=== PATIENT | female | born 1960 | race Caucasian/White ===

== ENCOUNTER 2017-02-02 15:56 | Observation (INO) | payer OTHER ==
[~2017-02-02] VITALS: Ht 175.3 cm; Wt 106.8 kg
[2017-02-02] VITALS (7 sets, daily range): BP systolic 97–116; BP diastolic 58–65; PULSE 64–78; RESP 14–18; Ht 175.3 cm; Wt 106.8 kg
[~2017-02-02 15:56] MED LIST: ASPI81TA3 PO; ATOR10TA65 PO; METF500T4 PO; OMEP40CA6 PO; TRAM50TA2 PO
[2017-02-02] MEDS ORDERED: HEPARIN 5,000 UNIT/0.5 ML VIAL ONE (16:00)
--- NOTE | 2017-02-02 16:07 | ERD ---
ER Documentation Chief Complaint Chief Complaint chest pressure x 3 days; sent from clinic HPI The patient is a 57-year-old female, presenting to the ER because of substernal chest pain and pressure intermittently for the last 3 days. She was seen in the clinic today where she was sent to the ER for further evaluation. The patient was 8/, who was treated with aspirin 325 mg p.o., 2 nitroglycerin spray, morphine 4 mg IV and Zofran 4 mg IV with good response, the pain is down to 3/10.. She denies dyspnea, radiation, abdominal pain, vomiting, dysuria, diarrhea. She does not smoke Past medical history: Hypertension, dyslipidemia, diabetes mellitus ROS All systems reviewed and are negative except as per history of present illness. Medications Home Meds Reported Medications Simvastatin* (Zocor*) 20 Mg Tablet, 20 MG PO QHS, #30 TAB 02/02/17 Metformin Hcl* (Metformin Hcl*) 500 Mg Tablet, 500 MG PO WITH BREAKFAST, #30 TAB 10/29/15 Discontinued Reported Medications Atorvastatin (Atorvastatin) 10 Mg Tablet, 20 MG PO DAILY, #30 TAB 10/29/15 Tramadol HCl (Tramadol HCl) 50 Mg Tablet, 100 MG PO Q6 Y for PAIN, #120 TAB 10/29/15 Aspirin* (Aspirin* Chew) 81 Mg Tab.chew, 81 MG PO DAILY, TAB.CHEW 10/29/15 Omeprazole* (Omeprazole*) 40 Mg Capsule.dr, 40 MG PO DAILY, #30 CAP 10/29/15 Allergies Allergies: Coded Allergies: No Known Allergy (Unverified , 02/02/17) PMhx/Soc Medical and Surgical Hx: pt denies Surgical Hx History of Surgery: Yes (hysterectomy) Anesthesia Reaction: No Hx Neurological Disorder: No Hx Respiratory Disorders: No Hx Cardiac Disorders: Yes (cholesterol) Hx Psychiatric Problems: No Hx Miscellaneous Medical Probl: Yes (diabetes) Hx Alcohol Use: No Hx Substance Use: No Hx Tobacco Use: No Smoking Status: Unknown if ever smoked Physical Exam Vitals Vital Signs Date Time Temp Pulse Resp B/P Pulse Ox O2 Delivery O2 Flow Rate FiO2 02/02/17 16:12 79 113/72 02/02/17 16:11 Nasal Cannula 4 02/02/17 15:59 98.8 78 16 106/67 96 Physical Exam Const: [] Head: Atraumatic Eyes: Normal Conjunctiva ENT: Normal External Ears, Nose and Mouth. Neck: Full range of motion..~ No meningismus. Resp: Clear to auscultation bilaterally Cardio: Regular rate and rhythm, no murmurs Abd: Soft, non tender, non distended. Normal bowel sounds Skin: No petechiae or rashes Back: No midline or flank tenderness Ext: No cyanosis, or edema Neur: Awake and alert Psych: Normal Mood and Affect Result Diagram: 02/02/17 1600 02/02/17 1600 Results 24 hrs Laboratory Tests Test 02/02/17 16:00 White Blood Count 2.610^3/ul Red Blood Count 4.6010^6/ul Hemoglobin 13.5g/dl Hematocrit 40.6% Mean Corpuscular Volume 88.3fl Mean Corpuscular Hemoglobin 29.3pg Mean Corpuscular Hemoglobin Concent 33.3g/dl Red Cell Distribution Width 12.8% Platelet Count 84842^3/UL Mean Platelet Volume 11.0fl Neutrophils % % Segmented Neutrophils % (Manual) 32% Lymphocytes % % Lymphocytes % (Manual) 47% Reactive Lymphocytes % (Manual) 7% Monocytes % % Monocytes % (Manual) 13% Eosinophils % % Eosinophils % (Manual) 2% Basophils % % Nucleated Red Blood Cells % 0.0/100WBC Neutrophils # 10^3/ul Absolute Lymphocytes (Manual) 1.210^3/ul Lymphocytes # 10^3/ul Reactive Lymphocytes # 0.110^3/ul Monocytes # 10^3/ul Absolute Monocytes (Manual) 0.310^3/ul Eosinophils # 10^3/ul Basophils # 10^3/ul Nucleated Red Blood Cells # 10^3/ul Giant Platelets 3% Platelet Morphology Comment @See below Poikilocytosis 1+ Sodium Level 140mmol/L Potassium Level 4.3mmol/L Chloride Level 103mmol/L Carbon Dioxide Level 24mmol/L Anion Gap 17 Blood Urea Nitrogen 10mg/dl Creatinine 0.96mg/dl Glucose Level 203mg/dl Calcium Level 9.3mg/dl Troponin I < 0.012ng/ml Current Medications Medications (Trade) Dose Ordered Sig/Essence Route PRN Reason Start Time Stop Time Status Last Admin Dose Admin Heparin Sodium (Porcine) (Heparin (5000 Units/0.5 ml)) 5,000 unit ONCE ONCE IV 02/02/17 16:10 02/02/17 16:11 Cancel Procedures/MDM Labs are pending when patient went to [facility] [place] [address] Radiology Main Line: [phone] DIAGNOSTIC IMAGING REPORT Patient: TRAMAINE CHAVEZ : 1960 Age: 57 Sex: F MR #: [id number] DOS: 02/02/17 1607 Ordering MD: DOROTHY GONSALEZ MD Location: E/R Room/Bed: PROCEDURE: Portable chest x-ray. CLINICAL INDICATION: 57-year of age, female. Chest pain TECHNIQUE: Portable AP view of the chest. COMPARISON: None available. FINDINGS: Medical devices: None. Tortuous aorta. Moderate diffuse enlargement of cardiopericardial silhouette. Bilateral hilar prominence is likely vascular. Decreased lung volumes with vascular crowding. Pulmonary vessels are prominent and indistinct likely due to interstitial pulmonary edema. Mild left greater than right lung base opacities likely represent atelectasis. There may be a trace left pleural effusion. Negative for a pneumothorax. No acute bony abnormality. Additional comment: None. IMPRESSION: 1. Cardiomegaly and suspected interstitial pulmonary edema. Evaluation is somewhat limited due to low lung volumes. 2. Mild left greater than right lung base opacities may represent atelectasis although aspiration or pneumonia could appear similar. RPTAT: HCTS Physician Frantz Date Time Electronically viewed and signed by Lizette Bonner Physician on 02/02/2017 16: 32 CS/ CC: DOROTHY GONSALEZ MD EKG: by EMS Read by emergency physician Rate/Rhythm: Normal Sinus Rhythm 65beats/min QRS, ST, T-waves: acute inf ST elevation with reciprocal changes, no PVC Impression: Acute Inf EKG EKG: in ER at 4 pm Read by emergency physician Rate/Rhythm: Normal Sinus Rhythm 80 beats/min QRS, ST, T-waves: No ST elevation, no T inversion Impression: Normal EKG MEDICAL MAKING DECISION: The patient is a 57-year-old female, presenting to the ER for acute STEMI EKG by EMS, however has a normal EKG in the ER. She was treated with heparin 5000 units IV for acute STEMI Consultation: I discussed the patient with the on-call assistant technician Dr. Garcia at 3:55 pm, who was made aware of the EKG changes and would like to take the patient to the [facility] for emergent cardiac angiogram The differential diagnoses considered include but are not limited to acute coronary syndrome, acute myocardial infarction, pericarditis, pulmonary embolism , aortic dissection, pneumonia, pleural effusion, pneumothorax, GERD, chest wall pain. Critical Care: Time: 35 minutes excluding all billable procedures. Treatments/Evaluations: Close monitoring and treatment of unstable vital signs, cardiorespiratory, and neurologic status, while maintaining tight balance of fluid, respiratory, and cardiac interventions. Departure Diagnosis: Primary Impression: ST elevation myocardial infarction (STEMI) Condition: Critical Comments I discussed the findings with the patient. I discussed the patient with the hospitalist Dr. Clark at 4:20 PM who was made aware of the lab, the treatment, the patient condition. The patient is admitted to ICU after cath Disclaimer: Inadvertent spelling and grammatical errors are likely due to EHR/ dictation software use and do not reflect on the overall quality of patient care. Also, please note that the electronic time recorded on this note does not necessarily reflect the actual time of the patient encounter. DOROTHY GONSALEZ MD Feb 02, 2017 16:07
[2017-02-02] MEDS ORDERED: HEPARIN 5,000 UNIT/0.5 ML VIAL IV ONE (16:10)
[2017-02-02] MEDS ORDERED: SIMV20TA PO (16:10)
[2017-02-02 16:15] LABS: ABNORMAL IP MESSAGE 1; HEMATOCRIT 40.6 % (37.0-47.0); HEMOGLOBIN 13.5 g/dl (12.0-16.0); MEAN CORPUSCULAR HEMOGLOBIN 29.3 pg (29.0-33.0); MEAN CORPUSCULAR HGB CONC 33.3 g/dl (32.0-37.0); MEAN CORPUSCULAR VOLUME 88.3 fl (82.0-101.0); PLATELET COUNT 197 10^3/UL (140-415); RED CELL DISTRIBUTION WIDTH 12.8 % (11.5-14.5); WHITE BLOOD COUNT 2.6 10^3/ul (4.8-10.8)
[2017-02-02 16:16] LABS: POSITIVE DIFF @See below
[2017-02-02] MEDS ORDERED: LIDOCAINE 1% (MDV) 20 ML INJ ONE (16:26)
[2017-02-02] MEDS ORDERED: NITROGLYCERIN (IC) 100 MCG/ML INJ ONE (16:26)
[2017-02-02] MEDS ORDERED: VERAPAMIL 5 MG INJ ONE (16:26)
[2017-02-02] MEDS ORDERED: MIDAZOLAM 1 MG/ML 2 ML INJ ONE ×2 (16:28→17:00)
[2017-02-02] MEDS ORDERED: FENTAnyl 50 MCG/ML VIAL ONE (16:28)
[2017-02-02] MEDS ORDERED: HEPARIN 1000 UNITS/ML 10 ML INJ IV ONE (16:30)
--- NOTE | 2017-02-02 16:32 | RADRPT ---
PROCEDURE: Portable chest x-ray. CLINICAL INDICATION: 57-year of age, female. Chest pain TECHNIQUE: Portable AP view of the chest. COMPARISON: None available. FINDINGS: Medical devices: None. Tortuous aorta. Moderate diffuse enlargement of cardiopericardial silhouette. Bilateral hilar promin ence is likely vascular. Decreased lung volumes with vascular crowding. Pulmonary vessels are prominent and indistinct likely due to interstitial pulmonary edema. Mild left greater than right lung base opacities likely repres ent atelectasis. There may be a trace left pleural effusion. Negative for a pneumothorax. No acute bony abnormality. Additional comment: None. IMPRESSION: 1. Cardiomegaly and suspected interstitial pulmonary edema. Evaluation is somewhat limited due to lo w lung volumes. 2. Mild left greater than right lung base opacities may represent atelectasis although aspiration or pneumonia could appear similar. RPTAT: HCTS Physician Frantz Date Time Electronically viewed and signed by Physician Frantz on 02/02/2017 16:32 /
[2017-02-02 16:36] LABS: ANION GAP 17 (8-16); BLOOD UREA NITROGEN 10 mg/dl (7-20); CALCIUM 9.3 mg/dl (8.4-10.2); CARBON DIOXIDE 24 mmol/L (21-31); CHLORIDE 103 mmol/L (97-110); CREATININE 0.96 mg/dl (0.44-1.00); GLUCOSE 203 mg/dl (70-220); POTASSIUM 4.3 mmol/L (3.5-5.1); SODIUM 140 mmol/L (135-144)
[2017-02-02 16:50] LABS: TROPONIN-I < 0.012 ng/ml (0.00-0.12)
[2017-02-02 16:59] LABS: EOSINOPHILS % (M) 2 % (0-7); GIANT THROMBO% (M) 3 % (0-0); MONOCYTES % (M) 13 % (0-11); POIKILOCYTOSIS 1+ (0-0); REACTIVE LYMPHOCYTES% (M) 7 % (0-0)
--- NOTE | 2017-02-02 17:29 | CONS ---
Date/Time of Note Date/Time of Note DATE: 02/02/17 TIME: 17:19 Assessment/Plan Assessment/Plan Chief Complaint/Hosp Course 57 yo with multiple coronary risk factors presents with chest pain and ST elevations inferior leads, resolved upon arrival in ER. Cath shows normal coronaries. This is consistent with coronary vasospasm. Problems: Additional Assessment/Plan Imp: ST elevations due to vasospasm HTN hypercholesterolemia diabetes Recc: Will add amlodipine to regimen Change her home statin from simvastatin to atorvastatin Echo Repeat troponin Home tomorrow if stable overnight. Consultation Date/Type/Reason Admit Date/Time 02/02/2017 Date of Consultation: Feb 02, 2017 Type of Consultation: cardiology Reason for Consultation STEMI Referring Provider: DOROTHY GONSALEZ MD Hx of Present Illness 57 yo with htn, hyperlipidemia, diabetes, presents with 3 d intermittent cp. Pt was in the ER at [facility] 3 d ago, sent home with inhalers. Pt presented to PCP Dr. Tiburcio Tate, was in extremis and he called paramedics. Seed Cleaner Operator EKG demonstrated NSR with ST elevations in inferior leads with reciprocal changes. Upon arrival, pt had no chest pain and repeat EKG was normal. Constitutional: improved, no complaints Eyes: no complaints ENT: no complaints Respiratory: no complaints Cardiovascular: chest pain (has resolved at present), no complaints Gastrointestinal: no complaints Genitourinary: no complaints Musculoskeletal: no complaints Skin: no complaints Neurologic: no complaints Psychological: nl mood/affect, no complaints Past Medical History Medical History: diabetes, high cholesterol, hypertension Past Surgical History Past Surgical Hx: other (hysterectomy) Family History Significant Family History: no pertinent family hx Social History Alcohol Use: none Smoking Status: Unknown if ever smoked Exam/Review of Systems Vital Signs Vitals Vital Signs Date Time Temp Pulse Resp B/P Pulse Ox O2 Delivery O2 Flow Rate FiO2 02/02/17 16:12 79 113/72 02/02/17 16:11 Nasal Cannula 4 02/02/17 15:59 98.8 16 96 Exam Constitutional: alert, oriented, well developed Psych: nl mood/affect, no complaints Head: atraumatic, normocephalic Eyes: EOMI, PERRL, nl conjunctiva, nl lids, nl sclera ENMT: nl external ears & nose, nl lips & teeth, nl nasal mucosa & septum Neck: supple, No bruits, No jvd Respiratory: clear to auscultation, normal air movement Cardiovascular: nl pulses, regular rate and rhythm, No murmurs/extra sounds Gastrointestinal: nl liver, spleen, non-tender, soft Musculoskeletal: nl extremities to inspection Extremities: normal pulses Neurological: nl mental status, nl speech Skin: nl turgor, No rash or lesions Results Result Diagram: 02/02/17 1600 02/02/17 1600 Results 24 hrs Laboratory Tests Test 02/02/17 16:00 White Blood Count 2.6 #L Red Blood Count 4.60 # Hemoglobin 13.5 # Hematocrit 40.6 # Mean Corpuscular Volume 88.3 Mean Corpuscular Hemoglobin 29.3 Mean Corpuscular Hemoglobin Concent 33.3 Red Cell Distribution Width 12.8 Platelet Count 197 Mean Platelet Volume 11.0 #H Neutrophils % Segmented Neutrophils % (Manual) 32 L Lymphocytes % Lymphocytes % (Manual) 47 Reactive Lymphocytes % (Manual) 7 H Monocytes % Monocytes % (Manual) 13 H Eosinophils % Eosinophils % (Manual) 2 Basophils % Nucleated Red Blood Cells % 0.0 Neutrophils # Absolute Lymphocytes (Manual) 1.2 Lymphocytes # Reactive Lymphocytes # 0.1 H Monocytes # Absolute Monocytes (Manual) 0.3 Eosinophils # Basophils # Nucleated Red Blood Cells # Giant Platelets 3 H Platelet Morphology Comment @See below Poikilocytosis 1+ Sodium Level 140 Potassium Level 4.3 Chloride Level 103 Carbon Dioxide Level 24 Anion Gap 17 H Blood Urea Nitrogen 10 Creatinine 0.96 Glucose Level 203 Calcium Level 9.3 Troponin I < 0.012 Procedures Procedures cath shows normal coronaries ekg as described above in hpi DARWIN WALLACE Feb 02, 2017 17:29
[2017-02-02] MEDS ORDERED: ACETAMINOPHEN 325 MG TAB PO PRN ×2 (17:30→18:00)
[2017-02-02] MEDS ORDERED: NACL 0.9% 3 ML SYG IV SCH (17:30)
[2017-02-02] MEDS ORDERED: MAGNESIUM HYDROXIDE 30ML CUP PO PRN (17:30)
[2017-02-02] MEDS ORDERED: DOCUSATE SODIUM 100 MG CAP PO PRN (17:30)
[2017-02-02] MEDS ORDERED: HYDROCODONE/APAP (5/325) TAB PO PRN (17:30)
--- NOTE | 2017-02-02 17:33 | OPPN ---
Date/Time of Note Date/Time of Note DATE: 02/02/17 TIME: 17:29 Operative Report Preoperative Diagnosis STEMI Postoperative Diagnosis coronary vasospasm Operation/Procedure Performed coronary angiography, left ventriculography Surgeon see signature line physicians assistant Roya RT Anesthesia: moderate sedation Estimated blood loss: 10 - 50 ml's Transfusion Required none Specimen none Grafts/Implants none Complications none DARWIN WALLACE Feb 02, 2017 17:33
[2017-02-02] MEDS ORDERED: SOD CHLORIDE 0.9% 1,000 ML IV SCH (17:35)
--- NOTE | 2017-02-02 17:51 | OPR ---
Date/Time of Note Date/Time of Note DATE: 02/02/17 TIME: 17:47 Operative Report Procedure Date: Feb 02, 2017 Preoperative Diagnosis STEMI inferior wall Postoperative Diagnosis Likely coronary spasm Operation/Procedure Performed coronary angiogram, left ventriculography Surgeon see signature line Hard Metals Engraver Hand Roya CASTILLO Anesthesia Type: moderate sedation Estimated Blood Loss: 10 - 50 ml's Transfusion none Specimen none Grafts/Implants none Complications none Pt Condition Post Procedure: stable Disposition: PACU Indications Chest pain and ST elevations of inferior leads, normalized by time patient reached ER. Procedure Description Patient brought emergently to cardiac labor contractor. Allens test done, and wrist prepped and draped. Lidocaine used for anesthesia locally. Using modified Seldinger technique, accessed the right radial artery. Moran catheter advanced to the asc thoracic aorta and engaged the RCA and LM, images done with injection of contrast. Catheter removed over wire, replaced with a pigtail which crossed the ao valve, pressures measured, LV gram done, and then pullback gradient done. At the end, the sheath was removed and replaced with a TR band. Findings discussed with pt with formal Faroese deaf interpreter. Case d/w her PCP Dr. Tate , and d/w son and . She left the procedure room in stable condition. Findings: LM - normal LCX - small, normal, two small OM's LAD - proximal mildly aneurysmal segment, one large tortuous diagonal vessel, no significant disease RCA - dominant, minimal luminal irregularities LV - ef 70%, LVEDP 7 DARWIN WALLACE Feb 02, 2017 17:51
[2017-02-02] MEDS ORDERED: AMLODIPINE 5 MG TAB PO SCH (18:00)
[2017-02-02] MEDS ORDERED: morphine 2 MG INJ IV PRN (18:00)
--- NOTE | 2017-02-02 18:12 | HP ---
Date/Time of Note Date/Time of Note DATE: 02/02/17 TIME: 17:53 Assessment/Plan VTE Prophylaxis VTE Prophylaxis Intervention: SCD's Lines/Catheters IV Catheter Type (from Nrsg): Peripheral IV Assessment/Plan Assessment/Plan 57 yo F with pmhx obesity, HL, DM presented with chest pain, EKG concerning for STEMI but cath with clean coronaries. Chest pain most likely 2/2 vasospasm #CV: ccb as per cards check a1c and lipids #LE cramps: ?muscle cramps? ?RLS? clinical scenario not suggestive of claudication given palpable pulses and no relation to activity check lytes outpatient EMG and ABIs #DM2: SSI, hold metformin cardiac diet HPI/ROS Admit Date/Time Admit Date/Time 02/02/2017 Hx of Present Illness CC chest pain HPI 57 yo F with pmhx obesity, HL, DM presented with 3 days of chest pain. EKG in the field concerning for chest pain concerning for STEMI. Pt taken emergently to cardiac cath lab radiology technologist, however cath showed clean coronaries. At this time pt feels ok, mostly just overwhelmed. She does note she's been getting cramps in her calves for the past few months. Happens when she is laying flat, is not associated with activity. PMHx: DM2, HL Soc Hx: lives in the community meds: metformin, simva ROS Eyes: no complaints ENT: no complaints Respiratory: no complaints Cardiovascular: chest pain (has resolved at present), no complaints Gastrointestinal: no complaints Genitourinary: no complaints Musculoskeletal: no complaints Skin: no complaints Neurologic: no complaints Psychological: nl mood/affect, no complaints PMH/Family/Social Past Medical History Medical History: diabetes, high cholesterol, hypertension Past Surgical History Past Surgical Hx: other (hysterectomy) Social History Alcohol Use: none Smoking Status: Unknown if ever smoked Exam/Review of Systems Vital Signs Vitals Vital Signs Date Time Temp Pulse Resp B/P Pulse Ox O2 Delivery O2 Flow Rate FiO2 02/02/17 16:12 79 113/72 02/02/17 16:11 Nasal Cannula 4 02/02/17 15:59 98.8 16 96 Exam Exam EOMI responds to questions appropriately in [place] no mrg lungs clear abd soft no rashes 5/5 strength bl LEs, palpable DPs, sensorium intact no edema Labs Result Diagram: 02/02/17 1600 02/02/17 1600 SEVERINO WHIPPLE MD Feb 02, 2017 18:12
[2017-02-02] MEDS ORDERED: GLUCAGON 1 MG INJ IM PRN (18:30)
[2017-02-02] MEDS ORDERED: GLUCOSE GEL 15 GRAM TUBE PO PRN ×2 (18:30)
[2017-02-02] MEDS ORDERED: GLUCOSE GEL 15 GRAM TUBE BUCCAL PRN (18:30)
[2017-02-02] MEDS ORDERED: DEXTROSE 50% 50 ML SYRINGE IV PRN ×2 (18:30)
[2017-02-02] MEDS: INSULIN ASPART [NOVOLOG] 3 ML PEN SC SCH ×2 (18:51→21:40)
[2017-02-02] MEDS ORDERED: ATORVASTATIN 80 MG TAB PO SCH (21:00)
[2017-02-02 23:15] LABS: CK-MB 0.57 ng/ml (0.0-2.4); TROPONIN-I 0.012 ng/ml (0.00-0.12)
[2017-02-03] VITALS (10 sets, daily range): BP systolic 97–130; BP diastolic 56–81; PULSE 55–68; RESP 16–20
[2017-02-03] MEDS ORDERED: ACCU-CHEK XX SCH (02:00)
[2017-02-03] MEDS: INSULIN ASPART [NOVOLOG] 3 ML PEN SC SCH ×3 (07:41→17:36)
[2017-02-03 08:01] LABS: ABNORMAL IP MESSAGE 1; HEMATOCRIT 35.1 % (37.0-47.0); HEMOGLOBIN 11.9 g/dl (12.0-16.0); MEAN CORPUSCULAR HEMOGLOBIN 29.8 pg (29.0-33.0); MEAN CORPUSCULAR HGB CONC 33.9 g/dl (32.0-37.0); MEAN CORPUSCULAR VOLUME 87.8 fl (82.0-101.0); PLATELET COUNT 162 10^3/UL (140-415); WHITE BLOOD COUNT 2.1 10^3/ul (4.8-10.8)
[2017-02-03 08:03] LABS: POSITIVE DIFF @See below
--- NOTE | 2017-02-03 08:29 | PN ---
Date/Time of Note Date/Time of Note DATE: 02/03/17 TIME: 08:26 Assessment/Plan VTE Prophylaxis VTE Prophylaxis Intervention: ambulation Lines/Catheters IV [facility] Saline Lock Assessment/Plan Chief Complaint/Hosp Course 57 yo with multiple coronary risk factors presents with chest pain and ST elevations inferior leads, resolved upon arrival in ER. Cath shows normal coronaries. This is consistent with coronary vasospasm. Problems: Assessment/Plan Coronary vasospasm / prinzmetal angina hypertension dyslipidemia diabetes Recc: Home today on atorvastatin instead of simvastatin, and amlodipine 2.5 mg for vasospasm ASA daily Follow up in my office one week. Subjective 24 Hr Interval Summary Free Text/Dictation Overnight no patient related events, amlodipine not given due to perceived low blood pressure (sbp 109). No further chest pain. Pt c/o sensitivity at IV site and wrist. Psychological: nl mood/affect Exam/Review of Systems Vital Signs Vitals Vital Signs Date Time Temp Pulse Resp B/P Pulse Ox O2 Delivery O2 Flow Rate FiO2 02/03/17 07:19 98.2 60 18 101/63 97 02/02/17 18:32 Nasal Cannula 2.0 Intake and Output 02/02/17 02/02/17 02/03/17 14:59 22:59 06:59 Intake Total 740 ml 120 ml Balance 740 ml 120 ml Exam Constitutional: alert, oriented, well developed Psych: nl mood/affect, no complaints Head: atraumatic, normocephalic Eyes: EOMI, PERRL, nl conjunctiva, nl lids, nl sclera ENMT: nl external ears & nose, nl lips & teeth, nl nasal mucosa & septum Neck: supple, No bruits, No jvd Respiratory: clear to auscultation, normal air movement Cardiovascular: regular rate and rhythm, No murmurs/extra sounds Gastrointestinal: non-tender, soft Musculoskeletal: nl extremities to inspection Extremities: other (right wrist site from cath intact, no hematoma, good pulse , good bellhop strength), No edema Neurological: nl mental status, nl speech Skin: nl turgor, No rash or lesions Results Result Diagram: 02/03/17 0736 02/02/17 1600 Results 24 hrs Laboratory Tests Test 02/02/17 16:00 02/02/17 17:52 02/02/17 21:37 02/02/17 22:28 White Blood Count 2.6 #L Red Blood Count 4.60 # Hemoglobin 13.5 # Hematocrit 40.6 # Mean Corpuscular Volume 88.3 Mean Corpuscular Hemoglobin 29.3 Mean Corpuscular Hemoglobin Concent 33.3 Red Cell Distribution Width 12.8 Platelet Count 197 Mean Platelet Volume 11.0 #H Neutrophils % Segmented Neutrophils % (Manual) 32 L Lymphocytes % Lymphocytes % (Manual) 47 Reactive Lymphocytes % (Manual) 7 H Monocytes % Monocytes % (Manual) 13 H Eosinophils % Eosinophils % (Manual) 2 Basophils % Nucleated Red Blood Cells % 0.0 Neutrophils # Absolute Lymphocytes (Manual) 1.2 Lymphocytes # Reactive Lymphocytes # 0.1 H Monocytes # Absolute Monocytes (Manual) 0.3 Eosinophils # Basophils # Nucleated Red Blood Cells # Giant Platelets 3 H Platelet Morphology Comment @See below Poikilocytosis 1+ Sodium Level 140 Potassium Level 4.3 Chloride Level 103 Carbon Dioxide Level 24 Anion Gap 17 H Blood Urea Nitrogen 10 Creatinine 0.96 Glucose Level 203 Calcium Level 9.3 Troponin I < 0.012 0.012 Bedside Glucose 193 202 Creatine Kinase 129 Creatine Kinase Index 0.4 Creatinine Kinase MB (Mass) 0.57 Test 02/03/17 01:59 02/03/17 07:35 02/03/17 07:36 Bedside Glucose 95 112 White Blood Count 2.1 L Red Blood Count 4.00 L Hemoglobin 11.9 L Hematocrit 35.1 L Mean Corpuscular Volume 87.8 Mean Corpuscular Hemoglobin 29.8 Mean Corpuscular Hemoglobin Concent 33.9 Red Cell Distribution Width 13.0 Platelet Count 162 Mean Platelet Volume 11.0 H Neutrophils % Lymphocytes % Monocytes % Eosinophils % Basophils % Nucleated Red Blood Cells % 0.0 Neutrophils # Lymphocytes # Monocytes # Eosinophils # Basophils # Nucleated Red Blood Cells # Medications Medications Current Medications Acetaminophen (Tylenol Tab) 650 mg Q6H PRN PO PAIN LEVEL 1-3 OR FEVER; Start 02/02/17 at 17:30 Acetaminophen/ Hydrocodone Bitart ([place] (5/325)) 1 tab Q6H PRN PO PAIN LEVEL 4 -6; Start 02/02/17 at 17:30 Docusate Sodium (Colace) 100 mg Q12H PRN PO CONSTIPATION; Start 02/02/17 at 17 :30 Magnesium Hydroxide (Milk Of Mag) 30 ml DAILY PRN PO CONSTIPATION; Start 02/02 at 17:30 Enoxaparin Sodium (Lovenox) 40 mg DAILY SC Last administered on 02/03/17 08: 12; Admin Dose 40 MG; Start 02/03/17 at 09:00 Diagnostic Test (Pha) (Accu-Chek) 1 ea 02 XX Last administered on 02/03/17 02 :18; Admin Dose 1 EA; Start 02/03/17 at 02:00 Morphine Sulfate (morphine) 2 mg Q2H PRN IV FOR NON CARDIAC PAIN (4-10) Last administered on 02/02/17 18:29; Admin Dose 2 MG; Start 02/02/17 at 18:00 Atorvastatin Calcium (Lipitor) 80 mg QHS PO Last administered on 02/02/17 21: 36; Admin Dose 80 MG; Start 02/02/17 at 21:00 Aspirin (Aspirin) 81 mg DAILY PO Last administered on 02/03/17 08:11; Admin Dose 81 MG; Start 02/03/17 at 09:00 Miscellaneous Information 1 ea NOTE XX ; Start 02/02/17 at 18:30 Glucose (Glutose) 15 gm Q15M PRN PO DECREASED GLUCOSE; Start 02/02/17 at 18:30 Glucose (Glutose) 22.5 gm Q15M PRN PO DECREASED GLUCOSE; Start 02/02/17 at 18: 30 Dextrose (D50w Syringe) 25 ml Q15M PRN IV DECREASED GLUCOSE; Start 02/02/17 at 18:30 Dextrose (D50w Syringe) 50 ml Q15M PRN IV DECREASED GLUCOSE; Start 02/02/17 at 18:30 Glucagon (Glucagen) 1 mg Q15M PRN IM DECREASED GLUCOSE; Start 02/02/17 at 18: 30 Glucose (Glutose) 15 gm Q15M PRN BUCCAL DECREASED GLUCOSE; Start 02/02/17 at 18:30 Amlodipine Besylate (Norvasc) 2.5 mg DAILY PO Last administered on 02/03/17 08:12; Admin Dose 2.5 MG; Start 02/03/17 at 09:00 DARWIN WALLACE Feb 03, 2017 08:29
[2017-02-03 08:34] LABS: IRON 44 ug/dl (35-150)
[2017-02-03 08:36] LABS: ALBUMIN 3.2 g/dl (3.3-4.9); ALBUMIN/GLOBULIN RATIO 0.94; BILIRUBIN,INDIRECT 0.3 mg/dl (0-1.1); BILIRUBIN,TOTAL 0.3 mg/dl (0.2-1.3); CALCIUM 8.8 mg/dl (8.4-10.2); CHOL/HDL RATIO 4.6 RATIO; CREATININE 0.76 mg/dl (0.44-1.00); POTASSIUM 4.2 mmol/L (3.5-5.1); TOTAL PROTEIN 6.6 g/dl (6.1-8.1)
[2017-02-03 08:39] LABS: CK-MB 0.53 ng/ml (0.0-2.4); TROPONIN-I 0.023 ng/ml (0.00-0.12)
[2017-02-03 08:43] LABS: TOTAL IRON BINDING CAPACITY 266 ug/dl (241-421)
[2017-02-03] MEDS ORDERED: ASPIRIN 81 MG TAB PO SCH ×2 (09:00)
[2017-02-03] MEDS ORDERED: ENOXAPARIN 40 MG/0.4 ML SYG SC SCH (09:00)
[2017-02-03] MEDS ORDERED: AMLODIPINE 2.5 MG TAB PO SCH (09:00)
[2017-02-03 09:17] LABS: BASOPHILS % (M) 4 % (0-2); EOSINOPHILS % (M) 2 % (0-7); GIANT THROMBO% (M) 4 % (0-0); MONOCYTES % (M) 5 % (0-11); PLATELET ESTIMATE NORMAL; REACTIVE LYMPHOCYTES% (M) 7 % (0-0)
[2017-02-03] MEDS ORDERED: AMLO2.5T78 PO (17:07)
[2017-02-03] MEDS ORDERED: ATOR80TA75 PO (17:07)
[2017-02-03] MEDS ORDERED: ASPI-535 PO (17:07)
[2017-02-03] MEDS ORDERED: GUAI120011 PO (17:07)
--- NOTE | 2017-02-03 17:10 | DS ---
Date/Time of Note Date/Time of Note DATE: 02/03/17 TIME: 17:09 Discharge Summary Admission/Discharge Info Admit Date/Time Feb 02, 2017 at 20:53 Discharge Date/Time Discharge Diagnosis chest pain 2/2 coronary vasospasm, leukopenia, bronchitis Patient Condition: Stable Consults cardiology Procedures [facility] 12 Findings: LM - normal LCX - small, normal, two small OM's LAD - proximal mildly aneurysmal segment, one large tortuous diagonal vessel, no significant disease RCA - dominant, minimal luminal irregularities LV - ef 70%, LVEDP 7 12.12 CXR IMPRESSION: 1. Cardiomegaly and suspected interstitial pulmonary edema. Evaluation is somewhat limited due to low lung volumes. 2. Mild left greater than right lung base opacities may represent atelectasis although aspiration or pneumonia could appear similar. a1c 6.8 CBC & CRP Test 02/02/17 16:00 02/03/17 07:36 White Blood Count 2.610^3/ul (4.8-10.8) #L 2.110^3/ul (4.8-10.8) L Red Blood Count 4.6010^6/ul (4.20-5.40) # 4.0010^6/ul (4.20-5.40) L Hemoglobin 13.5g/dl (12.0-16.0) # 11.9g/dl (12.0-16.0) L Hematocrit 40.6% (37.0-47.0) # 35.1% (37.0-47.0) L Mean Corpuscular Volume 88.3fl (82.0-101.0) 87.8fl (82.0-101.0) Mean Corpuscular Hemoglobin 29.3pg (29.0-33.0) 29.8pg (29.0-33.0) Mean Corpuscular Hemoglobin Concent 33.3g/dl (32.0-37.0) 33.9g/dl (32.0-37.0) Red Cell Distribution Width 12.8% (11.5-14.5) 13.0% (11.5-14.5) Platelet Count 53165^3/UL (140-415) 55885^3/UL (140-415) Mean Platelet Volume 11.0fl (7.4-10.4) #H 11.0fl (7.4-10.4) H Neutrophils % % (39.0-77.0) % (39.0-77.0) Segmented Neutrophils % (Manual) 32% (39-77) L 11% (39-77) L Lymphocytes % % (15.0-51.0) % (15.0-51.0) Lymphocytes % (Manual) 47% (15-51) 71% (15-51) H Reactive Lymphocytes % (Manual) 7% (0-0) H 7% (0-0) H Monocytes % % (0.0-11.0) % (0.0-11.0) Monocytes % (Manual) 13% (0-11) H 5% (0-11) Eosinophils % % (0.0-7.0) % (0.0-7.0) Eosinophils % (Manual) 2% (0-7) 2% (0-7) Basophils % % (0.0-2.0) % (0.0-2.0) Nucleated Red Blood Cells % 0.0/100WBC (0.0-0.0) 0.0/100WBC (0.0-0.0) Neutrophils # 10^3/ul (1.6-7.5) 10^3/ul (1.6-7.5) Absolute Lymphocytes (Manual) 1.210^3/ul (0.8-2.9) 1.410^3/ul (0.8-2.9) Lymphocytes # 10^3/ul (0.8-2.9) 10^3/ul (0.8-2.9) Reactive Lymphocytes # 0.110^3/ul (0.0-0.0) H 0.110^3/ul (0.0-0.0) H Monocytes # 10^3/ul (0.3-0.9) 10^3/ul (0.3-0.9) Absolute Monocytes (Manual) 0.310^3/ul (0.3-0.9) 0.110^3/ul (0.3-0.9) L Eosinophils # 10^3/ul (0.0-0.5) 10^3/ul (0.0-0.5) Basophils # 10^3/ul (0.0-0.1) 10^3/ul (0.0-0.1) Nucleated Red Blood Cells # 10^3/ul (0.0-0.0) 10^3/ul (0.0-0.0) Giant Platelets 3% (0-0) H 4% (0-0) H Platelet Morphology Comment @See below Poikilocytosis 1+ (0-0) Basophils % (Manual) 4% (0-2) H Basophils # (Manual) 0.010^3/ul (0.0-0.0) Platelet Estimate NORMAL Hx of Present Illness CC chest pain HPI 57 yo F with pmhx obesity, HL, DM presented with 3 days of chest pain. EKG in the field concerning for chest pain concerning for STEMI. Pt taken emergently to boat lab[facility], however cath showed clean coronaries. At this time pt feels ok, mostly just overwhelmed. She does note she's been getting cramps in her calves for the past few months. Happens when she is laying flat, is not associated with activity. PMHx: DM2, HL Soc Hx: lives in the community meds: metformin, simva Hospital Course 57 yo with multiple coronary risk factors presents with chest pain and ST elevations inferior leads, resolved upon arrival in ER. Cath shows normal coronaries, per cardiology consistent with coronary vasospasm. Pt started on low dose amlodipine and spasm resolved. Labs with incidental finding of leukopenia without thrombocytopenia or significant anemia. No critical neutropenia. Last CBCs here from 2016 with nl WBCs. Pt c/o of several days of coughing. Had actually presented to [place] 2 days ago and was diagnosed with bronchitis. Suspect leukopenia 2/2 viral process which is also the cause of pt's bronchitis. Though CXR here had ? infiltrate, no leukocytosis or fever to suggest bacterial PNA. Close follow up with PCP is advised for repeat CBC and further evaluation including possible dye house vat worker referral. Labs showed promince of reactive lymphocytes which would also be consistent with viral process Leukopenia discussed with PCP's office prior to discharge. Importance of follow up discussed with patient and her son and at length prior to discharge who voiced understanding Copy of dc summary faxed to PCP's office and given to patient prior to discharge. Changes from admit meds amlodipine started simva changed to atorva as simva would have precluded amlodipine use asa started for CAD risk reduction short course of mucinex for cough Home Meds Active Scripts Guaifenesin (Mucinex) 1,200 Mg Tab.er.12h, 1200 MG PO BID for 7 Days, #14 TAB Prov:SEVERINO WHIPPLE MD 02/03/17 Aspirin Ec (Aspir 81) 81 Mg Tablet., 81 MG PO DAILY for 30 Days, #30 TAB Prov:SEVERINO WHIPPLE MD 02/03/17 Atorvastatin* (Atorvastatin*) 80 Mg Tablet, 80 MG PO QHS for 30 Days, #30 TAB Prov:SEVERINO WHIPPLE MD 02/03/17 Amlodipine Besylate* (Amlodipine Besylate*) 2.5 Mg Tablet, 2.5 MG PO DAILY for 30 Days, #30 TAB Prov:SEVERINO WHIPPLE MD 02/03/17 Reported Medications Simvastatin* (Zocor*) 20 Mg Tablet, 20 MG PO QHS, #30 TAB 02/02/17 Metformin Hcl* (Metformin Hcl*) 500 Mg Tablet, 500 MG PO WITH BREAKFAST, #30 TAB 10/29/15 Discontinued Reported Medications Atorvastatin (Atorvastatin) 10 Mg Tablet, 20 MG PO DAILY, #30 TAB 10/29/15 Tramadol HCl (Tramadol HCl) 50 Mg Tablet, 100 MG PO Q6 Y for PAIN, #120 TAB 10/29/15 Aspirin* (Aspirin* Chew) 81 Mg Tab.chew, 81 MG PO DAILY, TAB.CHEW 10/29/15 Omeprazole* (Omeprazole*) 40 Mg Capsule., 40 MG PO DAILY, #30 CAP 10/29/15 Follow-up Plan Cardiology within 1 week PCP within 7 days to discuss leukopenia Primary Care Provider Tiburcio Tate Time spent on discharge: > 30 minutes Pending Labs Laboratory Tests Test 02/02/17 17:52 02/02/17 21:37 02/02/17 22:28 02/03/17 01:59 Bedside Glucose 193mg/dL (70-220) 202mg/dL (70-220) 95mg/dL (70-220) Creatine Kinase 129IU/L (23-200) Creatine Kinase Index 0.4 Creatinine Kinase MB (Mass) 0.57ng/ml (0.0-2.4) Troponin I 0.012ng/ml (0.00-0.12) Test 02/03/17 07:35 02/03/17 07:36 02/03/17 11:22 Bedside Glucose 112mg/dL (70-220) 155mg/dL (70-220) White Blood Count 2.110^3/ul (4.8-10.8) Red Blood Count 4.0010^6/ul (4.20-5.40) Hemoglobin 11.9g/dl (12.0-16.0) Hematocrit 35.1% (37.0-47.0) Mean Corpuscular Volume 87.8fl (82.0-101.0) Mean Corpuscular Hemoglobin 29.8pg (29.0-33.0) Mean Corpuscular Hemoglobin Concent 33.9g/dl (32.0-37.0) Red Cell Distribution Width 13.0% (11.5-14.5) Platelet Count 31185^3/UL (140-415) Mean Platelet Volume 11.0fl (7.4-10.4) Neutrophils % % (39.0-77.0) Segmented Neutrophils % (Manual) 11% (39-77) Lymphocytes % % (15.0-51.0) Lymphocytes % (Manual) 71% (15-51) Reactive Lymphocytes % (Manual) 7% (0-0) Monocytes % % (0.0-11.0) Monocytes % (Manual) 5% (0-11) Eosinophils % % (0.0-7.0) Eosinophils % (Manual) 2% (0-7) Basophils % % (0.0-2.0) Basophils % (Manual) 4% (0-2) Nucleated Red Blood Cells % 0.0/100WBC (0.0-0.0) Neutrophils # 10^3/ul (1.6-7.5) Absolute Lymphocytes (Manual) 1.410^3/ul (0.8-2.9) Lymphocytes # 10^3/ul (0.8-2.9) Reactive Lymphocytes # 0.110^3/ul (0.0-0.0) Monocytes # 10^3/ul (0.3-0.9) Absolute Monocytes (Manual) 0.110^3/ul (0.3-0.9) Eosinophils # 10^3/ul (0.0-0.5) Basophils # 10^3/ul (0.0-0.1) Basophils # (Manual) 0.010^3/ul (0.0-0.0) Nucleated Red Blood Cells # 10^3/ul (0.0-0.0) Platelet Estimate NORMAL Giant Platelets 4% (0-0) Sodium Level 139mmol/L (135-144) Potassium Level 4.2mmol/L (3.5-5.1) Chloride Level 104mmol/L (97-110) Carbon Dioxide Level 25mmol/L (21-31) Anion Gap 14 (8-16) Blood Urea Nitrogen 14mg/dl (7-20) Creatinine 0.76mg/dl (0.44-1.00) Glucose Level 116mg/dl (70-220) Hemoglobin A1c 6.8% (0-5.9) Calcium Level 8.8mg/dl (8.4-10.2) Iron Level 44ug/dl (35-150) Total Iron Binding Capacity 266ug/dl (241-421) Percent Iron Saturation 17% SAT (22-52) Ferritin 75.2ng/ml (11.1-264.0) Total Bilirubin 0.3mg/dl (0.2-1.3) Direct Bilirubin 0.00mg/dl (0.00-0.20) Indirect Bilirubin 0.3mg/dl (0-1.1) Aspartate Amino Transf (AST/SGOT) 30IU/L (15-46) Alanine Aminotransferase (ALT/SGPT) 41IU/L (13-69) Alkaline Phosphatase 83IU/L (42-121) Creatine Kinase 103IU/L (23-200) Creatine Kinase Index 0.5 Creatinine Kinase MB (Mass) 0.53ng/ml (0.0-2.4) Troponin I 0.023ng/ml (0.00-0.12) Total Protein 6.6g/dl (6.1-8.1) Albumin 3.2g/dl (3.3-4.9) Globulin 3.40g/dl (1.3-3.2) Albumin/Globulin Ratio 0.94 Triglycerides Level 127mg/dl (0-149) Cholesterol Level 138mg/dl (100-200) LDL Cholesterol, Calculated 83mg/dl HDL Cholesterol 30mg/dl (37-92) Cholesterol/HDL Ratio 4.6RATIO Copies To: CC: DARWIN WALLACE ELLEN MD Feb 03, 2017 17:10
--- NOTE | 2017-02-03 17:22 | PDOCDIS ---
Discharge Instructions DIAGNOSIS Discharge Diagnosis chest pain 2/2 coronary vasospasm, leukopenia, bronchitis CONDITION Patient Condition: Stable HOME CARE INSTRUCTIONS: Special Diet: Regular FOLLOW UP/APPOINTMENTS Follow-up Plan Follow up with Dr Garcia with transportation engineer within 1 week Office Address formerly [facility] Brynn Brown [address] [address] Office Follow up with your regular doctor within 7 days to discus your low white blood cell count and see if further testing is needed If you experience worsening chest pain or shortness of breath, call 911/go to the nearest ER immediately SEVERINO WHIPPLE MD Feb 03, 2017 17:22
--- NOTE | 2017-02-03 19:26 | RADRPT ---
Vent Rate: 61 bpm RR Interval: 0 msec [place] Interval: 166 msec QRS Duration: 84 msec QT Interval: 440 msec QTC Interval: 442 msec P-R-T [place]: 60 - 32 - 42 degrees Normal sinus rhythm Low voltage QRS Borderline ECG Electronically Signed By: Andre Clark [id number]
== END 2017-02-03 18:00 | disposition home or self-care (01) ==
LOC: E/R 15:56 → CCL 16:17 → UNDOADMOB 20:53 → MS4 20:53 → REC 20:53 → CCL 20:53 → UNDODISOB 02-03 18:00
PROVIDERS: ADMIT Internal Medicine; ATTEND Internal Medicine Interventional Cardiology
DX: I20.1 Angina pectoris with documented spasm (principal); D72.819 Decreased white blood cell count, unspecified; J40 Bronchitis, not specified as acute or chronic; E78.00 Pure hypercholesterolemia, unspecified; I10 Essential (primary) hypertension; E11.9 Type 2 diabetes mellitus without complications; E78.5 Hyperlipidemia, unspecified; E66.9 Obesity, unspecified; Z68.34 Body mass index [BMI] 34.0-34.9, adult; Z79.82 Long term (current) use of aspirin; Z79.84 Long term (current) use of oral hypoglycemic drugs
CPT/HCPCS: 71010; 80048; 80053; 80061; 82550; 82553; 82728; 82962; 83036; 83540; 84484; 85025; 93005; 96372; 96374; J1644; J1650; J1815; J2250; J2270; J3010; Z7500; Z7502; Z7610; 93458; G0378; C1887

== ENCOUNTER 2018-07-14 05:43 | Day surgery (SDC) | payer OTHER ==
[2018-07-14] VITALS (9 sets, daily range): BP systolic 112–141; BP diastolic 64–77; PULSE 64–78; RESP 14–18; Ht 172.7 cm; Wt 107.9 kg
[~2018-07-14] VITALS: Ht 172.7 cm; Wt 107.9 kg
[~2018-07-14 05:43] MED LIST changes: +AMLO2.5T78 PO; +ASPI-535 PO; -ASPI81TA3 PO; +ATOR-2 PO; -ATOR10TA65 PO; +GUAI120011 PO; +METF500T24 PO; -METF500T4 PO; -OMEP40CA6 PO; -TRAM50TA2 PO
[2018-07-14] MEDS ORDERED: CHOL200056 ORAL (07:17)
[2018-07-14] MEDS ORDERED: LOVA20TA ORAL (07:17)
[2018-07-14] MEDS ORDERED: ASPI-817 ORAL (07:17)
[2018-07-14] MEDS ORDERED: AMLO-145 ORAL (07:17)
[2018-07-14] MEDS ORDERED: METF-849 ORAL (07:17)
[2018-07-14] MEDS ORDERED: PANT40TA4 ORAL (07:17)
[2018-07-14] MEDS ORDERED: RIVA10TA PO (07:23)
--- NOTE | 2018-07-14 07:25 | PREAC ---
Date/Time of Note Date/Time of Note DATE: 07/14/18 TIME: 07:24 Anesthesia Eval and Record Evaluation Time Pre-Procedure Interview DATE: 07/14/18 TIME: 07:24 Age 58 Sex female NPO: 8 hrs Preoperative diagnosis R ankle pain Planned procedure R ankle arthrodesis Past Medical History Past Medical History: Includes Cardio: HTN, Dyslipidemia Endo: Diabetes Musculoskeletal: Osteoarthritis GI: Morbid obesity Surgery & Anesthesia Issues No known issue Meds Anticoagulation: No Beta Neri within 24 hr: No Reason Beta Neri not given: Pt. not on B-Neri Reported Medications Rivaroxaban* (Xarelto*) 10 Mg Tablet, 10 MG PO DAILY, TAB 07/14/18 Metformin* (Glucophage*) 500 Mg Tab, 1 TAB ORAL BID 07/14/18 Aspirin* (Aspirin* EC) 81 Mg Tablet., 1 TAB ORAL DAILY 07/14/18 Cholecalciferol (Vitamin D3) (Vitamin D-3) 2,000 Unit Tablet, 1 TAB ORAL DAILY 07/14/18 Pantoprazole* (Pantoprazole*) 40 Mg Tablet., 1 TAB ORAL DAILY 07/14/18 Lovastatin* (Lovastatin*) 20 Mg Tablet, 1 TAB ORAL DAILY 07/14/18 Amlodipine Besylate* (Amlodipine Besylate*) 5 Mg Tablet, 1 TAB ORAL DAILY 07/14/18 Discontinued Reported Medications Metformin Hcl* (Metformin Hcl*) 500 Mg Tablet, 500 MG PO WITH BREAKFAST, #30 TAB 10/29/15 Discontinued Scripts Guaifenesin (Mucinex) 1,200 Mg Tab.er.12h, 1200 MG PO BID for 7 Days, #14 TAB Prov:SEVERINO WHIPPLE MD 02/03/17 Aspirin Ec (Aspir 81) 81 Mg Tablet.dr, 81 MG PO DAILY for 30 Days, #30 TAB Prov:SEVERINO WHIPPLE MD 02/03/17 Atorvastatin* (Atorvastatin*) 80 Mg Tablet, 80 MG PO QHS for 30 Days, #30 TAB Prov:SEVERINO WHIPPLE MD 02/03/17 Amlodipine Besylate* (Amlodipine Besylate*) 2.5 Mg Tablet, 2.5 MG PO DAILY for 30 Days, #30 TAB Prov:SEVERINO WHIPPLE MD 02/03/17 Meds reviewed: Yes Allergies Coded Allergies: No Known Allergy (Unverified , 07/14/18) Allergies Reviewed: Yes Labs/Studies Labs Reviewed: Reviewed by anesthesiologist test: N/A Studies: ECG Pre-procedure Exam Last vitals Vital Signs Date Temp Pulse Resp B/P (MAP) Pulse Ox O2 O2 Flow FiO2 Time Delivery Rate 07/14/18 98.3 64 18 141/77 95 Room Air 06:54 (98) Airway: Adequate mouth opening, Adequate thyromental dist Mallampati: Mallampati II Teeth: Normal Lung: Normal Heart: Normal ASA Physical Status ASA physical status: 3 Emergency: None Planned Anesthetic General/MAC: ETT Nerve block: Femoral (right), Sciatic (right) Pre-operative Attestations Prior to commencing anesthesia and surgery, the patient was re-evaluated, there was verification of: *The patient's identity *The results of appropriate recent lab work and preoperative vital signs *The above evaluation not changing prior to induction *Anesthetic plan, risk benefits, alternative and complications discussed with patient/family; questions answered; patient/family understands, accepts and wishes to proceed. TAMI JOSEPH July 14, 2018 07:25
[2018-07-14] MEDS ORDERED: MIDAZOLAM 1 MG/ML 2 ML INJ ONE (07:34)
[2018-07-14] MEDS ORDERED: FENTAnyl 50 MCG/ML VIAL ONE (07:34)
[2018-07-14] MEDS ORDERED: ROPIVACAINE 0.5 % 30 ML VIAL ONE (07:34)
[2018-07-14] MEDS ORDERED: POLYMYXIN/BACITRACIN 1L IRRIG IRR ONE (08:57)
[2018-07-14] MEDS ORDERED: LABETALOL HCL 20MG INJ ONE (10:03)
[2018-07-14] MEDS ORDERED: SUCCINYLCHOLINE CHLORIDE 100 MG/5 ML SYG IV ONE (10:46)
[2018-07-14] MEDS ORDERED: PROPOFOL 20 ML ONE (10:47)
[2018-07-14] MEDS ORDERED: LIDOCAINE 100 MG SYRINGE ONE (10:47)
[2018-07-14] MEDS ORDERED: SUGAMMADEX SODIUM 200 MG/2 ML VIAL IV ONE (10:47)
[2018-07-14] MEDS ORDERED: CEFAZOLIN 1 GM INJ ONE (10:47)
[2018-07-14] MEDS ORDERED: ROCURONIUM 50 MG INJ ONE (10:47)
[2018-07-14] MEDS ORDERED: NEOMYC/POLYMYX/BACIT 30 GM OINT ONE (10:49)
--- NOTE | 2018-07-14 11:08 | HPN ---
Date/Time of Note Date/Time of Note DATE: 07/14/18 TIME: 11:08 Interval H&P Admission Note Pt. seen H&P reviewed: No system changes PAWEL ESCOBAR MD July 14, 2018 11:08
[2018-07-14] MEDS ORDERED: HYDROmorphONE 1 MG/5 ML IV SYRINGE IV PRN ×3 (11:30)
[2018-07-14] MEDS ORDERED: ALBUTEROL 0.083% (NEB) 2.5 MG/3 ML AMP HHN PRN (11:30)
[2018-07-14] MEDS ORDERED: LEVALBUTEROL (NEB) 0.63 MG/3 ML AMP HHN PRN (11:30)
[2018-07-14] MEDS ORDERED: FENTAnyl 50 MCG/ML VIAL IV PRN ×3 (11:30)
[2018-07-14] MEDS ORDERED: ONDANSETRON 4 MG INJ IV PRN (11:30)
[2018-07-14] MEDS ORDERED: METOCLOPRAMIDE 10 MG INJ IV PRN (11:30)
--- NOTE | 2018-07-14 13:33 | PAC ---
Date/Time of Note Date/Time of Note DATE: 07/14/18 TIME: 13:33 Post-Anesthesia Notes Post-Anesthesia Note Last documented vital signs Vital Signs Date Temp Pulse Resp B/P (MAP) Pulse Ox O2 O2 Flow FiO2 Time Delivery Rate 07/14/18 98.8 13:25 07/14/18 75 18 131/69 94 Room Air 11:46 (89) Activity: WNL Respiratory function: WNL Cardiovascular function: WNL Mental status: Baseline Pain reasonably controlled: Yes Hydration appropriate: Yes Nausea/Vomiting absent: Yes TAMI JOSEPH July 14, 2018 13:33
--- NOTE | 2018-07-14 22:15 | QN ---
Documentation Job number: [id number] PAWEL ESCOBAR MD July 14, 2018 22:14
--- NOTE | 2018-07-15 05:33 | OPR ---
DATE OF OPERATION: 07/14/2018 PREOPERATIVE DIAGNOSIS: Right posttraumatic subtalar arthritis. POSTOPERATIVE DIAGNOSIS: Right posttraumatic subtalar arthritis. PROCEDURE: Right subtalar joint arthrodesis with autograft and allograft. SURGEON: Pawel Bejarano MD EXPERIMENTAL MECHANIC: None. ANESTHESIA: General with popliteal block. ANESTHESIOLOGIST: John White DO TOURNIQUET TIME: 120 minutes at 250 mmHg. ESTIMATED BLOOD LOSS: Minimal. TRANSFUSIONS: None. SPECIMENS: None. IMPLANTS: Two 7.0 mm fully threaded headless Arthrex compression screws with ArthroCell, AlloSync Pure mixed with PRP spun at 2% hematocrit. COMPLICATIONS: None. The patient's condition postprocedure stable. DISPOSITION: PACU. INDICATIONS: The patient is a 58-year-old female who sustained a calcaneal injury several years ago while living in [place]. Given her posttraumatic arthritis that has developed, and improvement with previous injections and subtalar joint over the past year, the patient is indicated for surgery. Risk Note: Patient was explained the risks and benefits of surgery and the patient's afognak language including not limited to infection, bleeding, injury to blood vessels, nerves, ligaments or tendons. Risks of anesthesia, deep vein thrombosis and need for reduce future surgery. Patient acknowledged these risk by signing the surgical consent form. OPERATIVE NOTE: The patient was met in the preoperative holding area. Correct operative extremity was marked and confirmed with the patient and consent. The patient was brought to the operative theater and placed supine on the operative table and given preoperative antibiotics. The patient was then brought into the lateral decubitus position and all bony prominences were well padded. Tourniquet had been placed nonsterilely on the upper thigh. A timeout was taken and all parties in the room agreed it was the correct patient, extremity and procedure. The tourniquet was inflated to 250 mmHg. An incision was made over the sinus tarsi just below the tip of the lateral malleolus and extending to the base of the 4th metatarsal. Subcutaneous tissue was incised in line with the skin incision, and hemostasis was achieved. Extensor digitorum brevis was identified and elevated along with a sinus tarsi flap, fat padded the distally based flap. A small cuff of tissue was observed for proximal reattachment. Subtalar joint was then well visualized at this point and the peroneal tendons and CFL were preserved. After adequate visualization of the lateral aspect of the joint had been obtained, all fatty and ligamentous tissue was then removed with a rongeur. A straight curette and chisels as well as a rongeur were used to remove articular cartilage from the lateral, medial and posterior talus and calcaneus with the goal to remain in the normal curve and contour of the articular facets. After completion of all cartilage removal, K-wire holes were then created to renew the surface of the talus and the calcaneus to produce vascular channels to aid in fusion. Furthermore, a 3 mm justen was then used to feather the subchondral bone as well as a curved osteotome. Autograft from the calcaneus was then mixed with the allograft and then inserted in the subtalar joint. The digitorum brevis was then reattached to the site of origin to seal the arthrodesis site. At this point, the subtalar joint was then positioned in 5 degrees of valgus and a 1 cm stab incision was made over the apex of the heel to create incision for the guide pin. Two guide pins were then placed medial and lateral with the medial one placed into the talar neck and the lateral placed into the talar body. There was shown to be in a well-position of both AP, lateral and Lin axial view. The 2 compression screws were then overdrilled and then screws were then placed and confirmed to be in excellent compression and position. The correct hindfoot valgus position was then noted, and there was satisfactory ankle range of motion. The remainder of the wounds were irrigated thoroughly and further bone grafting was then placed sinus tarsi. The extensor digitorum brevis fascia was then reapproximated and the wound was then closed with a 2-0 Vicryl, followed by 3-0 Monocryl and a 4-0 nylon as well as a 3-0 nylon over the heel. The wounds were all dressed with amniotic membrane subcutaneously prior to formal closure and then over the skin as well and then covered with platelet-poor soaked sponges. The ankle was then placed in a well-padded short leg splint in the neutral position. The patient was brought to PACU in stable condition, and all toes are warm and perfused. Dictated By: PAWEL BRIGGS/EVANGELIST Conf#: [id number] [facility]#: [id number] MTDD
== END 2018-07-14 13:01 | disposition home or self-care (01) ==
LOC: SDS 05:43
PROVIDERS: ATTEND Orthopaedic Surgery
DX: M19.171 Post-traumatic osteoarthritis, right ankle and foot (principal); E11.9 Type 2 diabetes mellitus without complications; I10 Essential (primary) hypertension; E78.5 Hyperlipidemia, unspecified; Z79.82 Long term (current) use of aspirin; Z79.84 Long term (current) use of oral hypoglycemic drugs
CPT/HCPCS: 28725; 73610; 82306; 82962; 85610; 85730; J0690; J2001; J2250; J2795; J3010; Z7512; Z7610